=== PATIENT | female | born 2000 | race Caucasian/White ===

== ENCOUNTER → 2021-12-07 | Day surgery (SDC) | payer BC ==
[~2021-12-07] VITALS: Ht 157.5 cm; Wt 56.8 kg
[~2021-12-07] MED LIST: IV RINGERS,LACTATED 1000ML 1,000 ML IV SCH; LIDOCAINE 2% PF 5 ML VIAL. ONE; PROPOFOL 10 MG/ML (20ML) VIAL. IV ONE
[2021-12-07 06:51] VITALS: BP 98/65
--- NOTE | 2021-12-07 07:50 | PDOC2 ---
CONSULT Date of Consult Date of Consult DATE: 12/07/21 TIME: 07:45 Reason for Consult Reason for Consult: Diffuse abd pain History of Present Illness Reason for Visit: 21 year old Female is seen with persistent diffuse abd pain. Diarrhea is more frequent than constipation. No family history of IBD, celiac, and/oe GB disease is present. No foods seem to worsen the discomfort. Prior ER visit, Ct scan, and Sb series have been unrevealing. With the persistent symptoms, she requests further evaluation. Past Medical History GI: No pertinent hx Past Surgical History Past Surgical History: No pertinent history Family History Family History: Cancer (breast grandmother), Hypertension Social History No ALCOHOL: social Allergies Allergies: Coded Allergies: No Known Drug Allergies (Unverified , 12/07/21) ROS Gastrointestinal: Yes Abdominal Pain (diffuse) Physical Exam General: Alert, Oriented X3 Lungs: Clear to auscultation Heart: Regular rate, Normal S1, Normal S2 Abdomen: Normal bowel sounds, Soft, No hepatosplenomegaly Vitals VITALS Vital Signs Date Time Temp Pulse Resp B/P (MAP) Pulse Ox O2 Delivery O2 Flow Rate FiO2 12/07/21 06:51 98.0 99 18 76 98.0 Labs Labs Laboratory Tests Test 12/07/21 06:53 Bedside Urine HCG, Qualitative Hcg negative (Negative) Laboratory Tests Test 12/07/21 06:53 Bedside Urine HCG, Qualitative Hcg negative (Negative) Assessment/Plan Assessment/Plan Diffuse abd pain- etiology to be determined. Celiac disease, PUD, IBD, and/or GB disease in differential. Upper endosocpy to further assess. R/b discussed with patient who is willing to proceed. RAMOS AJ MD December 07, 2021 07:50
[2021-12-07 08:32] VITALS: BP 121/74
--- NOTE | 2021-12-08 17:42 | PATHOLOGY ---
[facility] Accession Number: [id number] . 01 Material submitted: . duodenum - DUODENAL BIOPSIES R/O CELIAC . 01 Clinical history: . DIFFUSE ABDOM PAIN, NEG ABD US . 02 Diagnosis: Duodenal biopsies: - No significant pathologic abnormalities. (M:josef; 12/08/2021) [facility] 12/08/2021 1043 Local . 02 Comment: Sections of the duodenal biopsy reveal multiple segments of duodenal mucosa. Where best oriented, the mucosal villi show no sprue-like changes or significant inflammatory changes. (JPM:josef; 12/08/2021) . 02 Electronically signed: . Iban Mccord MD, Pathologist NPI- [id number] . 01 Gross description: . The specimen is received in formalin, labeled "Lavonne Chestert, duodenal bx". The specimen is additionally labeled on the requisition as, "duodenal bx's r/o celiac". Received are multiple, ortega-pink, soft tissue fragments, ranging in size from 0.2-0.6 cm, in greatest dimension. The specimen is entirely submitted cassette A1. (J; 12/07/2021) JGG/JGG 12/07/2021 1538 Local . 02 Pathologist provided ICD-10: R10.9 . 02 CPT . 423294 Specimen Comment: A courtesy copy of this report has been sent to [phone], [phone] Specimen Comment: [id number] Specimen Comment: Report sent to Specimen Comment: A duplicate report has been generated due to demographic updates. Performed at: [address], [place], [place] [id number] MD Irvin Baron MD Phone: [phone] Performed at: 02 [facility] [address], [place] [id number] MD Iban Mccord MD Phone: [phone]
== END | disposition home or self-care (01) ==
LOC: ENDOS 06:29
PROVIDERS: ATTEND Internal Medicine Gastroenterology
DX: R10.84 Generalized abdominal pain (principal); K31.89 Other diseases of stomach and duodenum; Z79.899 Other long term (current) drug therapy
CPT/HCPCS: 43239; 81025; J2704